=== PATIENT | male | born 1955 | race Two or more races ===

== ENCOUNTER 2022-10-06 17:04 | Emergency (ER) | payer MEDICARE, MEDICAID ==
[~2022-10-06] VITALS: Ht 195.6 cm; Wt 82.0 kg
[2022-10-06] MEDS ORDERED: SODIUM CHLORIDE 0.9% 1,000 ML IV ONE (18:15)
[2022-10-06] MEDS ORDERED: ONDANSETRON HCL 4 MG/2 ML VIAL IV ONE (18:15)
[2022-10-06] MEDS ORDERED: MORPHINE SULFATE INJ 2 MG/ml SYRG IV ONE (18:15)
[2022-10-06 18:39] LABS: Basophils # (auto) 0.1 10 ^3/uL (0-0.2); Basophils % (auto) 0.5 % (0.0-2.0); Eosinophils # (auto) 0 10 ^3/uL (0-0.8); Eosinophils % (auto) 0.4 % (0.0-7.0); Hematocrit 40.7 % (41.0-53.0); Hemoglobin 14.1 g/dL (13.5-17.5); Lymphocytes # (auto) 1.5 10 ^3/uL (0.4-5.4); Lymphocytes % (auto) 14.2 % (10.0-50.0); Mean Corpuscular Hemoglobin 31.8 pg (28.0-32.0); Mean Corpuscular Hgb Conc. 34.7 g/dL (32.0-36.0); Mean Corpuscular Volume 91.7 fL (80.0-100.0); Monocytes # (auto) 0.4 10 ^3/uL (0-1.3); Neutrophils # (auto) 8.3 10 ^3/uL (1.6-8.6); Neutrophils % (auto) 80.9 % (37.0-80.0); Red Blood Cells 4.44 10^6/uL (4.5-5.90); Red Cell Distribution Width 12.4 % (11.8-14.3); White Blood Cell 10.3 10^3/uL (4.4-10.8)
[2022-10-06 18:52] LABS: Albumin 3.9 g/dL (3.4-5.0); BUN/Creatinine Ratio 14.5 (10.0-20.0); Calcium 8.5 mg/dL (8.5-10.1); Potassium 5.2 mmol/L (3.5-5.1)
[2022-10-06 18:55] LABS: Bilirubin, Total 0.3 mg/dL (0.2-1.0); Total Protein 7.5 g/dL (6.4-8.2)
[2022-10-06] MEDS ORDERED: ACETAMINOPHEN 325 MG TAB PO ONE (20:00)
[2022-10-06 22:11] VITALS: BP 116/73
== END 2022-10-06 20:34 | disposition short-term general hospital (02) ==
LOC: EDBD 17:04 → ER 17:04
DX: S32.401A Unspecified fracture of right acetabulum, initial encounter for closed fracture (principal); W18.39XA Other fall on same level, initial encounter; Y93.89 Activity, other specified; Y92.89 Other specified places as the place of occurrence of the external cause; Y99.8 Other external cause status
CPT/HCPCS: 36415; 70450; 71250; 72125; 74176; 80053; 85025; 93005; 96361; 96374; 96375; 99285; J2270; J2405; J7030

== ENCOUNTER 2023-10-25 10:13 | Inpatient (IN) | payer MEDICARE, MEDICAID ==
[~2023-10-25] VITALS: Ht 167.6 cm; Wt 86.5 kg
[2023-10-25 10:40] VITALS: PULSE 80; RESP 16; O2SAT 95
[2023-10-25] MEDS: SODIUM CHLORIDE 0.9% 1,000 ML IV ONE (10:42)
[2023-10-25 10:54] LABS: Basophils # (auto) 0 10 ^3/uL (0-0.2); Basophils % (auto) 0.8 % (0.0-2.0); Eosinophils # (auto) 0.1 10 ^3/uL (0-0.8); Eosinophils % (auto) 2.2 % (0.0-7.0); Hematocrit 40.9 % (41.0-53.0); Hemoglobin 14.2 g/dL (13.5-17.5); Lymphocytes # (auto) 2.1 10 ^3/uL (0.4-5.4); Lymphocytes % (auto) 37.5 % (10.0-50.0); Mean Corpuscular Hemoglobin 31.9 pg (28.0-32.0); Mean Corpuscular Hgb Conc. 34.6 g/dL (32.0-36.0); Mean Corpuscular Volume 92.3 fL (80.0-100.0); Monocytes # (auto) 0.3 10 ^3/uL (0-1.3); Monocytes % (auto) 6.1 % (0.0-12.0); Neutrophils % (auto) 53.4 % (37.0-80.0); Nucleated Red Blood Cells % 0.3 %; Red Blood Cells 4.44 10^6/uL (4.5-5.90); Red Cell Distribution Width 12.6 % (11.8-14.3); White Blood Cell 5.6 10^3/uL (4.4-10.8)
[2023-10-25 11:11] LABS: Alanine Aminotransferase 25 U/L (7-40); Albumin 3.9 g/dL (3.2-4.8); Alkaline Phosphatase 105 U/L (46-116); Anion Gap 8 (5-15); Aspartate Aminotransferase 20 U/L (13-40); Bilirubin, Total 0.5 mg/dL (0.2-1.0); Blood Urea Nitrogen 5 mg/dL (9-23); Calcium 8.7 mg/dL (8.5-10.1); Carbon Dioxide 24 mmol/L (20-30); Chloride 103 mmol/L (98-107); Glucose 232 mg/dL (74-106); Potassium 3.9 mmol/L (3.5-5.1); Sodium 135 mmol/L (136-145); Total Protein 6.4 g/dL (5.7-8.2)
[2023-10-25] MEDS ORDERED: ACETAMINOPHEN 325 MG TAB PO PRN (12:15)
[2023-10-25] MEDS ORDERED: hydrALAZINE HCL 20 MG/ML VL IV PRN (12:15)
[2023-10-25] MEDS ORDERED: ONDANSETRON HCL 4 MG/2 ML VIAL IV PRN (12:15)
[2023-10-25] MEDS ORDERED: LORazepam 0.5 MG TAB PO PRN (12:15)
[2023-10-25] MEDS ORDERED: DOCUSATE SOD 100 MG CAP PO PRN (12:15)
[2023-10-25] MEDS ORDERED: NITROGLYCERIN 0.4 MG SL TAB SL PRN (12:15)
[2023-10-25] MEDS ORDERED: MORPHINE SULFATE INJ 2 MG/ml SYRG IV PRN ×2 (12:15)
[2023-10-25] MEDS ORDERED: DEXTROSE (50%) 50ML SYRG IV PRN (12:15)
[2023-10-25 12:47] LABS: Urine Bacteria None Seen /hpf (None Seen)
[2023-10-25 13:09] LABS: Amphetamine Screen, Urine Neg (NEGATIVE); Barbiturate Scree,Urine Neg (NEGATIVE); Benzodiazephine Screen, Urine Neg (NEGATIVE); Cocaine Screen, Urine Neg (NEGATIVE); Opiate Scree,Urine Neg (NEGATIVE); Phencyclidine Screen, Urine Neg (NEGATIVE)
[2023-10-25 13:10] LABS: Cannabinoid Screen, Urine Neg (NEGATIVE)
[2023-10-25] MEDS: ASPirin 81 mg TAB PO ONE (13:26)
[2023-10-25] MEDS: ATORVASTATIN 20 MG TAB PO ONE (13:27)
[2023-10-25 13:40] LABS: Chloride 103 mmol/L (98-107); Potassium 3.9 mmol/L (3.5-5.1); Sodium 134 mmol/L (136-145)
[2023-10-25 13:41] LABS: Anion Gap 8 (5-15); Calcium 8.7 mg/dL (8.5-10.1); Carbon Dioxide 23 mmol/L (20-30)
[2023-10-25 13:46] LABS: BUN/Creatinine Ratio 7.4 (10.0-20.0); Blood Urea Nitrogen 6 mg/dL (9-23); Glucose 212 mg/dL (74-106); Triglycerides 429 mg/dL (< 150)
[2023-10-25 13:48] LABS: Cholesterol 154 mg/dL (< 200); HDL Cholesterol 31 mg/dL (40-59)
[2023-10-25 13:59] LABS: Urine Blood Negative /uL (Negative); Urine Clarity Clear (Clear); Urine Color Light-Yellow (Yellow); Urine Protein, UAD Negative (Negative); Urine Specific Gravity 1.013 (1.001-1.035); Urine Urobilinogen Normal (Negative); Urine WBC <1 /hpf (0 - 3)
[2023-10-25] MEDS: ACCU-CHEK COMFORT CURVE STRIP VI SCH (17:58)
[2023-10-25] MEDS: InsuLIN REG 1unit/0.01ml Soln (100units/ml) SC SCH (17:59)
[2023-10-25 19:57] VITALS: PULSE 71; RESP 20; O2SAT 93
[2023-10-26 00:07] VITALS: BP 129/87; PULSE 80; RESP 18; TEMP 98.1; O2SAT 95
[2023-10-26 01:00] VITALS: BP 129/87; PULSE 80; RESP 18; TEMP 98.1; O2SAT 95
[2023-10-26 05:00] VITALS: BP 125/77; PULSE 76; RESP 19; TEMP 98.9; O2SAT 93
[2023-10-26] MEDS ORDERED: MECLIZINE HCL 25 MG TAB PO PRN (06:45)
[2023-10-26 06:49] LABS: Basophils # (auto) 0 10 ^3/uL (0-0.2); Basophils % (auto) 0.5 % (0.0-2.0); Eosinophils # (auto) 0.2 10 ^3/uL (0-0.8); Eosinophils % (auto) 2.7 % (0.0-7.0); Hematocrit 42.4 % (41.0-53.0); Hemoglobin 14.7 g/dL (13.5-17.5); Lymphocytes # (auto) 2.2 10 ^3/uL (0.4-5.4); Mean Corpuscular Hgb Conc. 34.6 g/dL (32.0-36.0); Mean Corpuscular Volume 92.6 fL (80.0-100.0); Monocytes # (auto) 0.4 10 ^3/uL (0-1.3); Monocytes % (auto) 6.7 % (0.0-12.0); Neutrophils # (auto) 3.2 10 ^3/uL (1.6-8.6); Neutrophils % (auto) 53.1 % (37.0-80.0); Nucleated Red Blood Cells % 0.1 %; Red Blood Cells 4.58 10^6/uL (4.5-5.90); Red Cell Distribution Width 12.6 % (11.8-14.3); White Blood Cell 6.1 10^3/uL (4.4-10.8)
[2023-10-26 06:56] LABS: INR 1.04 (0.9-1.15); Partial Thromboplastin Time 27.2 SEC (24.5-34.5); Prothrombin Time 10.9 sec (9.3-11.8)
[2023-10-26 07:15] LABS: Alanine Aminotransferase 25 U/L (7-40); Albumin 4.1 g/dL (3.2-4.8); Alkaline Phosphatase 105 U/L (46-116); Anion Gap 9 (5-15); Aspartate Aminotransferase 21 U/L (13-40); BUN/Creatinine Ratio 9.2 (10.0-20.0); Bilirubin, Total 0.6 mg/dL (0.2-1.0); Blood Urea Nitrogen 8 mg/dL (9-23); Calcium 9.3 mg/dL (8.5-10.1); Carbon Dioxide 25 mmol/L (20-30); Chloride 104 mmol/L (98-107); Glucose 177 mg/dL (74-106); Potassium 4.6 mmol/L (3.5-5.1); Sodium 138 mmol/L (136-145); Total Protein 6.7 g/dL (5.7-8.2)
[2023-10-26 07:47] LABS: Magnesium 2.2 mg/dL (1.6-2.6)
[2023-10-26 08:00] VITALS: PULSE 75; RESP 18; O2SAT 94
[2023-10-26 09:00] VITALS: BP 134/85; PULSE 75; RESP 18; TEMP 97.6; O2SAT 94
[2023-10-26] MEDS: ENOXAPARIN SOD 40 MG/0.4 ML SYRINGE SC SCH (10:23)
[2023-10-26] MEDS: LOSARTAN POTASSIUM 25 MG TAB PO SCH (10:23)
[2023-10-26] MEDS: ASPirin 81 mg TAB PO SCH (10:23)
[2023-10-26] MEDS ORDERED: LOS25T PO (13:24)
[2023-10-26] MEDS ORDERED: ATOR20TA50 PO (13:24)
[2023-10-26] MEDS ORDERED: ASPI-325 PO ×2 (13:24→13:34)
[2023-10-26] MEDS ORDERED: MECL-90 PO ×2 (13:24→13:34)
[2023-10-26] MEDS ORDERED: ATOR-507 PO (13:34)
[2023-10-26] MEDS ORDERED: BLOO-169 XX (13:34)
[2023-10-26] MEDS ORDERED: METF-370 PO (13:34)
[2023-10-26 15:03] VITALS: BP 125/80; PULSE 91; RESP 22; TEMP 97.5; O2SAT 94
[2023-10-26] MEDS ORDERED: ATORVASTATIN 20 MG TAB PO SCH (22:00)
[2023-10-30] MEDS ORDERED: LOSA-533 PO (10:58)
== END 2023-10-26 15:45 | disposition home or self-care (01) | DRG 305 ==
LOC: ER 10:13 → EDBD 10:13 → EDUNIT# 10:13 → TELE 12:15 → TELE-CENTR 23:32
PROVIDERS: ADMIT Internal Medicine; ATTEND Emergency Medicine
DX: I16.0 Hypertensive urgency (principal); E11.9 Type 2 diabetes mellitus without complications; E78.5 Hyperlipidemia, unspecified; E66.9 Obesity, unspecified; Z68.30 Body mass index [BMI] 30.0-30.9, adult
CPT/HCPCS: 36415; 70450; 70551; 71045; 71046; 76705; 80048; 80053; 80061; 80307; 81001; 82140; 82306; 82607; 82962; 83036; 83735; 84443; 84484; 85025; 85610; 85730; 87040; 87086; 93005; 93306; 93886; 96360; G0378; J1815; J2405

== ENCOUNTER 2024-08-31 08:56 | Emergency (ER) | payer MEDICARE, OTHER ==
[~2024-08-31] VITALS: Ht 167.6 cm; Wt 85.0 kg
[~2024-08-31 08:56] MED LIST: ASPI-325 PO; ATOR-507 PO; BLOO-169 XX; LOSA-533 PO; MECL-90 PO; METF-370 PO
[2024-08-31 09:54] VITALS: BP 107/72; PULSE 77; RESP 16; TEMP 97.3; O2SAT 95
--- NOTE | 2024-08-31 09:59 | DVH ---
EXAM: XY R KNEE 3V XRAY CLINICAL INDICATION: INJURY SWELLING TECHNIQUE: XY R KNEE 3V XRAY Comparison: None FINDINGS/IMPRESSION: There is an avulsion fracture along the posterior aspect of the proximal tibia. Small joint effusion .
[2024-08-31] MEDS ORDERED: HYDR-4902 PO (11:08)
[2024-08-31] MEDS: HYDROcodone-ACET 5/325MG TAB PO ONE (11:09)
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
== END 2024-08-31 11:34 | disposition home or self-care (01) ==
LOC: ER 08:56
DX: S82.101A Unspecified fracture of upper end of right tibia, initial encounter for closed fracture (principal); E11.9 Type 2 diabetes mellitus without complications; I10 Essential (primary) hypertension; Z79.899 Other long term (current) drug therapy; Z79.82 Long term (current) use of aspirin; X50.1XXA Overexertion from prolonged static or awkward postures, initial encounter; Y93.89 Activity, other specified; Y92.89 Other specified places as the place of occurrence of the external cause; Y99.8 Other external cause status
CPT/HCPCS: 29505; 73562